=== PATIENT | male | born 1960 | race Two or more races ===

== ENCOUNTER 2017-03-11 14:38 | Emergency (ER) | payer BC ==
[~2017-03-11] VITALS: Ht 162.6 cm; Wt 75.3 kg
[2017-03-11 14:39] VITALS: BP 119/74
== END 2017-03-11 16:11 | disposition home or self-care (01) ==
LOC: ED 15:00
DX: S01.81XD Laceration without foreign body of other part of head, subsequent encounter (principal); X58.XXXD Exposure to other specified factors, subsequent encounter
CPT/HCPCS: 99281

== ENCOUNTER 2019-07-17 07:28 | Emergency (ER) | payer SELFPAY ==
[~2019-07-17] VITALS: Ht 162.6 cm; Wt 76.8 kg
[2019-07-17 07:32] VITALS: BP 121/86
[2019-07-17] MEDS ORDERED: FLUORESCEIN OPHTHALMIC 1 MG STRIP ONE (07:41)
[2019-07-17] MEDS ORDERED: EYE WASH SOLUTION 120ML ONE (07:47)
== END 2019-07-17 09:14 | disposition home or self-care (01) ==
LOC: ED 08:26
DX: T15.02XA Foreign body in cornea, left eye, initial encounter (principal); X58.XXXA Exposure to other specified factors, initial encounter; Y93.89 Activity, other specified; Y92.89 Other specified places as the place of occurrence of the external cause; Y99.8 Other external cause status
CPT/HCPCS: 65222; 99284